=== PATIENT | male | born 1940 | race Caucasian/White ===

== ENCOUNTER 2020-11-17 13:56 | Outpatient (CLI) | payer MEDICARE, BC | END 2020-11-17 13:57 | disposition home or self-care (01) | LOC: CSHCT 13:56 | PROVIDERS: ATTEND Otolaryngology | DX: R13.10 Dysphagia, unspecified (principal); K14.9 Disease of tongue, unspecified; E04.2 Nontoxic multinodular goiter | CPT/HCPCS: 70491; 82565 ==

== ENCOUNTER 2020-12-02 12:49 | Outpatient (CLI) | payer MEDICARE, BC ==
[2020-12-02 14:05] LABS: Hemoglobin 14.7 g/dL (13.5-17.5)
[2020-12-02 15:02] LABS: Anion Gap 15 mmol/L (10-20); BUN (Urea Nitrogen) 24 mg/dL (8.4-25.7); Calc. Creatinine Clearance 0 mL/min (70-130); Calcium 9.9 mg/dL (7.8-10.44); Carbon Dioxide 24 mmol/L (23-31); Chloride 104 mmol/L (98-107); Glucose 141 mg/dL (83-110); Potassium 4.8 mmol/L (3.5-5.1); Sodium 138 mmol/L (136-145)
[2020-12-03 13:56] LABS: SARS-CoV-2 PCR by NAA Not Detected (NotDetected)
== END 2020-12-02 12:50 | disposition home or self-care (01) ==
LOC: CSHLAB 12:49
PROVIDERS: ATTEND Otolaryngology Otolaryngic Allergy
DX: Z01.818 Encounter for other preprocedural examination (principal); Z20.822 Contact with and (suspected) exposure to COVID-19
CPT/HCPCS: 80048; 85014; 85018; 93005; 93010; U0003; U0005

== ENCOUNTER 2020-12-06 08:39 | Day surgery (SDC) | payer MEDICARE, BC ==
[2020-12-05 13:13] VITALS: BMI 28.1
[2020-12-06] MEDS ORDERED: SUGAMMADEX SODIUM 500 MG/5 ML VIAL ONE (08:59)
[2020-12-06] MEDS ORDERED: Lidocaine 1% MPF 2 ML VIAL ONE (09:41)
[2020-12-06] MEDS ORDERED: Fentanyl 100 MCG/2 ML VIAL ONE (10:35)
[2020-12-06] MEDS ORDERED: Midazolam HCl 2 mg/2 ml Vial ONE (10:35)
[2020-12-06] MEDS ORDERED: Rocuronium Bromide 10 MG/ML (10ML VIAL) ONE (10:35)
[2020-12-06] MEDS ORDERED: Ondansetron PF 4 MG/2 ML Vial ONE (10:35)
[2020-12-06] MEDS ORDERED: Dexamethasone 20 MG/5 ML VIAL ONE (10:35)
[2020-12-06] MEDS ORDERED: PROPOFOL 20 ML ONE ×2 (10:35→11:33)
[2020-12-06] MEDS ORDERED: EPINEPHrine 1 MG/ML AMP ONE (10:36)
== END 2020-12-06 13:20 | disposition home or self-care (01) ==
LOC: CSHSDC 08:39
PROVIDERS: ATTEND Otolaryngology Otolaryngic Allergy
PROC: 0CBM8ZX Excision of Pharynx, Via Natural or Artificial Opening Endoscopic, Diagnostic (ICD-10-PCS; principal; 2020-12-06)
DX: C01 Malignant neoplasm of base of tongue (principal); L29.9 Pruritus, unspecified; Z79.82 Long term (current) use of aspirin; Z79.899 Other long term (current) drug therapy; Z79.84 Long term (current) use of oral hypoglycemic drugs; E11.9 Type 2 diabetes mellitus without complications; Z87.891 Personal history of nicotine dependence
CPT/HCPCS: 87624; 88305; 88331; 88342; J0171; J1100; J2250; J2405; J2704; J3010

== ENCOUNTER 2021-10-26 17:12 | Observation (INO) | payer MEDICARE, BC ==
[~2021-10-26 17:12] MED LIST: Iopamidol 300 61% 100 ML VIAL FS ONE
[2021-10-26 19:26] LABS: #Monocytes 0.8 10x3/uL (0.0-1.1); #Neutrophils 12.5 10x3/uL (1.5-8.4); %Basophils 0.2 % (0.0-2.0); %Eosinophils 0.3 % (0.0-6.0); %Lymphocytes 1.7 % (18.0-47.0); %Monocytes 5.8 % (0.0-10.0); %Neutrophils 91.6 % (40.0-75.0); Hemoglobin 12.8 g/dL (13.5-17.5); Mean Corpuscular HGB CONC 34.7 g/dL (32.0-36.0); Mean Corpuscular Hemoglobin 30.4 pg (27.0-33.0); Mean Corpuscular Volume 87.6 fl (81.2-95.1); Mean Platelet Volume 9.5 fl (7.4-10.4); Platelet Count 218 10x3/uL (150-450); RBC Distribution Width 13.3 % (11.5-14.5); Red Blood Cell (RBC) Count 4.21 10x6/uL (4.32-5.72); White Blood Cell (WBC) Count 13.6 10x3/uL (3.5-10.5)
[2021-10-26 19:38] LABS: ALT (SGPT) 14 U/L (8-55); AST (SGOT) 13 U/L (5-34); Albumin 3.8 g/dL (3.4-4.8); Alkaline Phosphatase 77 U/L (40-110); Anion Gap 15 mmol/L (10-20); BUN (Urea Nitrogen) 19 mg/dL (8.4-25.7); Bilirubin, Total 1.8 mg/dL (0.2-1.2); CK (CPK) 21 U/L (30-200); Calc. Creatinine Clearance 0 mL/min (70-130); Calcium 9.1 mg/dL (7.8-10.44); Carbon Dioxide 25 mmol/L (23-31); Chloride 96 mmol/L (98-107); Estimated GFR 106; Globulin 2.3 g/dL (2.4-3.5); Glucose 161 mg/dL (83-110); Lipase 21 U/L (8-78); Potassium 3.9 mmol/L (3.5-5.1); Protein, Total 6.1 g/dL (5.8-8.1); Sodium 132 mmol/L (136-145)
[2021-10-26] MEDS ORDERED: Cefepime 2 GM VIAL ONE (19:45)
[2021-10-26] MEDS ORDERED: Ondansetron PF 4 MG/2 ML Vial ONE (19:45)
[2021-10-26 21:19] LABS: Bilirubin Neg (Negative); Blood, Urine 25 (Negative); Glucose, Urine (Dipstick) Normal (Negative); Ketone, Urine Negative (Negative); Leukocyte 25 (Negative); Nitrite Negative (Negative); Protein, Urine (Dipstick) 30 mg/dl (Neg-Trace)
[2021-10-26 21:41] LABS: Clarity Slightly Cloudy (Clear)
[2021-10-26 21:43] LABS: Bacteria/HPF 3+ HPF (None Seen); RBC/HPF 0-3 HPF (0-3); Squamous Epithelial 0-3 HPF (0-3); Yeast-Budding 1+ HPF (None Seen)
[2021-10-26] MEDS ORDERED: Acetaminophen 500 MG TAB ONE (22:12)
[2021-10-26 23:07] LABS: SARS-CoV-2 NAA Rapid Test Not Detected (NotDetected)
[2021-10-27 00:23] VITALS: BMI 21.9
[2021-10-27] MEDS ORDERED: Acetaminophen 325 MG TAB PO PRN (02:14)
[2021-10-27] MEDS: Sodium Chloride 0.9% 1,000 ML IV SCH ×2 (02:56→17:25)
[2021-10-27] MEDS ORDERED: cefTRIAXone\\ROCEPHIN 1 GM in Sodium Chloride 0.9% 100 ML IVPB SCH (03:00)
[2021-10-27] MEDS ORDERED: Azithromycin 500 MG in Sodium Chloride 0.9% 250 ML 250 ML IVPB SCH (04:00)
[2021-10-27 04:43] LABS: Hemoglobin 11.9 g/dL (13.5-17.5); Mean Corpuscular Hemoglobin 29.7 pg (27.0-33.0); Mean Corpuscular Volume 87.3 fl (81.2-95.1); Mean Platelet Volume 9.7 fl (7.4-10.4); Platelet Count 175 10x3/uL (150-450); RBC Distribution Width 13.6 % (11.5-14.5); Red Blood Cell (RBC) Count 4.01 10x6/uL (4.32-5.72); White Blood Cell (WBC) Count 10.1 10x3/uL (3.5-10.5)
[2021-10-27 04:51] LABS: Anion Gap 13 mmol/L (10-20); BUN (Urea Nitrogen) 16 mg/dL (8.4-25.7); Calc. Creatinine Clearance 63 mL/min (70-130); Calcium 8.7 mg/dL (7.8-10.44); Carbon Dioxide 25 mmol/L (23-31); Chloride 101 mmol/L (98-107); Estimated GFR 88; Glucose 124 mg/dL (83-110); Magnesium 1.8 mg/dL (1.6-2.6); Potassium 3.9 mmol/L (3.5-5.1); Sodium 135 mmol/L (136-145)
[2021-10-27 04:59] LABS: MDiff Complete? YES
[2021-10-27 05:01] LABS: Lymphocytes 2 % (21-51); Monocytes 5 % (0-10); Neutrophil 93 % (42-75)
[2021-10-27 05:02] LABS: Platelet Morphology Comment Appears Adequate; RBC Morphology Normal
[2021-10-27] MEDS ORDERED: Enoxaparin Sodium 40 MG/0.4 ML SYRINGE SC SCH (09:00)
[2021-10-27] MEDS ORDERED: Aspirin 81 mg Enteric Coated Tablet PO SCH (09:00)
[2021-10-27] MEDS ORDERED: Atorvastatin Calcium 10 MG TAB PO SCH (09:00)
[2021-10-27] MEDS ORDERED: PARoxetine 20 MG TAB PO SCH (09:00)
[2021-10-27 17:25] VITALS: BP 116/63; TEMP 97.6
== END 2021-10-27 16:00 | disposition home or self-care (01) ==
LOC: CSHERS 17:12 → INTOOBSV 10-27 00:18 → CSHTELE 10-27 00:18
PROVIDERS: ADMIT Internal Medicine; ATTEND Internal Medicine
DX: J18.9 Pneumonia, unspecified organism (principal); E11.9 Type 2 diabetes mellitus without complications; E78.2 Mixed hyperlipidemia; K57.30 Diverticulosis of large intestine without perforation or abscess without bleeding; Z22.322 Carrier or suspected carrier of Methicillin resistant Staphylococcus aureus; Z85.51 Personal history of malignant neoplasm of bladder; Z85.819 Personal history of malignant neoplasm of unspecified site of lip, oral cavity, and pharynx; Z87.891 Personal history of nicotine dependence; Z79.82 Long term (current) use of aspirin; Z79.84 Long term (current) use of oral hypoglycemic drugs; Z79.899 Other long term (current) drug therapy; Z20.822 Contact with and (suspected) exposure to COVID-19
CPT/HCPCS: 71045; 74177; 80048; 80053; 82550; 82962 ×2; 83605; 83690; 83735; 83880; 84484; 85025; 87040; 93005; 96372; 96375; G0378; U0002; 36415; 36416; 81003; 81015; J0456; J0692; J0696; J1650; J2405; J3370; J3490; J7050; Q9967

== ENCOUNTER 2021-11-12 09:43 | Inpatient (IN) | payer MEDICARE, BC ==
[2021-11-12 10:52] LABS: Hemoglobin 13.1 g/dL (13.5-17.5); Mean Corpuscular HGB CONC 35.1 g/dL (32.0-36.0); Mean Corpuscular Volume 85.6 fl (81.2-95.1); Mean Platelet Volume 9.7 fl (7.4-10.4); Platelet Count 292 10x3/uL (150-450); RBC Distribution Width 14.2 % (11.5-14.5); Red Blood Cell (RBC) Count 4.36 10x6/uL (4.32-5.72); White Blood Cell (WBC) Count 24.3 10x3/uL (3.5-10.5)
[2021-11-12 10:58] LABS: ALT (SGPT) 20 U/L (8-55); AST (SGOT) 9 U/L (5-34); Albumin 3.8 g/dL (3.4-4.8); Alkaline Phosphatase 78 U/L (40-110); Anion Gap 18 mmol/L (10-20); BUN (Urea Nitrogen) 26 mg/dL (8.4-25.7); Bilirubin, Total 1.8 mg/dL (0.2-1.2); Calc. Creatinine Clearance 0 mL/min (70-130); Calcium 9.8 mg/dL (7.8-10.44); Carbon Dioxide 20 mmol/L (23-31); Chloride 96 mmol/L (98-107); Estimated GFR 68; Globulin 3.3 g/dL (2.4-3.5); Glucose 265 mg/dL (83-110); Lipase 16 U/L (8-78); Potassium 4.4 mmol/L (3.5-5.1); Protein, Total 7.1 g/dL (5.8-8.1); Sodium 130 mmol/L (136-145)
[2021-11-12 11:00] LABS: Bilirubin Neg (Negative); Blood, Urine 25 (Negative); Clarity Cloudy (Clear); Glucose, Urine (Dipstick) Normal (Negative); Ketone, Urine Negative (Negative); Leukocyte 100 (Negative); Nitrite Negative (Negative); Protein, Urine (Dipstick) 30 mg/dl (Neg-Trace); Urobilinogen Normal mg/dL (Less than 2)
[2021-11-12 11:11] LABS: Bacteria/HPF 2+ HPF (None Seen); Mucous/LPF 3+ LPF (<2+); RBC/HPF 0-3 HPF (0-3); Squamous Epithelial 0-3 HPF (0-3); WBC/HPF 0-3 HPF (0-3)
[2021-11-12 11:12] LABS: MDiff Complete? YES
[2021-11-12 11:19] LABS: SARS-CoV-2 NAA Rapid Test Not Detected (NotDetected)
[2021-11-12] MEDS ORDERED: cefTRIAXone\\ROCEPHIN 2 GM VIAL ONE (11:30)
[2021-11-12 11:48] LABS: Neutrophil 90 % (42-75)
[2021-11-12 11:49] LABS: Band 1 % (5-11); Lymphocytes 1 % (21-51)
[2021-11-12 11:50] LABS: Monocytes 8 % (0-10); Platelet Morphology Comment Appears Adequate
[2021-11-12] MEDS ORDERED: Ondansetron PF 4 MG/2 ML Vial IVP PRN (14:17)
[2021-11-12] MEDS ORDERED: Ondansetron ODT 4 MG TAB PO PRN (14:17)
[2021-11-12] MEDS ORDERED: Sodium Chloride 0.9% 1,000 ML IV SCH (14:30)
[2021-11-12] MEDS ORDERED: Dextrose 50% Abboject 50 ML SYRINGE SLOW IVP PRN (14:38)
[2021-11-12] MEDS ORDERED: Dextrose 5% in Water 1,000 ML IV PRN (14:38)
[2021-11-12 15:27] VITALS: BMI 21.9
[2021-11-12] MEDS ORDERED: Vancomycin HCl 1 GM in Sodium Chloride 0.9% 250 ML 250 ML IVPB SCH (17:00)
[2021-11-12] MEDS: HumaLOG 300 UNITS/3 ML VIAL SC PRN ×2 (17:57→20:49)
[2021-11-12] MEDS: Acetaminophen 325 MG TAB PO PRN (20:47)
[2021-11-12] MEDS: Cefepime 1 GM in Sodium Chloride 0.9% 100 ML IVPB SCH (20:48)
[2021-11-13 04:44] LABS: #Monocytes 1.7 10x3/uL (0.0-1.1); #Neutrophils 14.2 10x3/uL (1.5-8.4); %Basophils 0.2 % (0.0-2.0); %Eosinophils 0.2 % (0.0-6.0); %Lymphocytes 1.6 % (18.0-47.0); %Monocytes 10.5 % (0.0-10.0); %Neutrophils 86.8 % (40.0-75.0); Hemoglobin 10.6 g/dL (13.5-17.5); Mean Corpuscular Hemoglobin 29.7 pg (27.0-33.0); Mean Corpuscular Volume 87.4 fl (81.2-95.1); Platelet Count 215 10x3/uL (150-450); RBC Distribution Width 14.5 % (11.5-14.5); Red Blood Cell (RBC) Count 3.57 10x6/uL (4.32-5.72); White Blood Cell (WBC) Count 16.3 10x3/uL (3.5-10.5)
[2021-11-13 05:14] LABS: Anion Gap 16 mmol/L (10-20); BUN (Urea Nitrogen) 23 mg/dL (8.4-25.7); Calc. Creatinine Clearance 65 mL/min (70-130); Calcium 8.6 mg/dL (7.8-10.44); Carbon Dioxide 21 mmol/L (23-31); Chloride 99 mmol/L (98-107); Estimated GFR 89; Glucose 215 mg/dL (83-110); Potassium 3.7 mmol/L (3.5-5.1); Sodium 132 mmol/L (136-145)
[2021-11-13] MEDS: Acetaminophen 325 MG TAB PO PRN (05:59)
[2021-11-13] MEDS: HumaLOG 300 UNITS/3 ML VIAL SC PRN ×3 (06:00→21:29)
[2021-11-13] MEDS ORDERED: Electrolyte Replacement Protocol 1 EACH FS PRN (08:00)
[2021-11-13 09:07] LABS: Magnesium 1.9 mg/dL (1.6-2.6); Phosphorus 2.4 mg/dL (2.3-4.7)
[2021-11-13] MEDS: Cefepime 1 GM in Sodium Chloride 0.9% 100 ML IVPB SCH ×2 (09:28→21:27)
[2021-11-13] MEDS: PARoxetine 20 MG TAB PO SCH (09:28)
[2021-11-13] MEDS: Aspirin 81 mg Enteric Coated Tablet PO SCH (09:28)
[2021-11-13] MEDS: Enoxaparin Sodium 40 MG/0.4 ML SYRINGE SC SCH (09:28)
[2021-11-13] MEDS ORDERED: Vancomycin HCl 1 GM in Sodium Chloride 0.9% 250 ML 250 ML IVPB SCH (18:00)
[2021-11-13] MEDS ORDERED: Lantus 1000 UNITS/10 ML VIAL SC SCH (21:00)
[2021-11-13] MEDS: Atorvastatin Calcium 10 MG TAB PO SCH (21:27)
[2021-11-13] MEDS: prednisoLONE 1% Ophth Susp 5 ml Bottle R EYE SCH (21:28)
[2021-11-14] MEDS: Acetaminophen 325 MG TAB PO PRN (02:22)
[2021-11-14 04:24] LABS: Hemoglobin 10.5 g/dL (13.5-17.5); Mean Corpuscular HGB CONC 34.9 g/dL (32.0-36.0); Mean Corpuscular Hemoglobin 29.7 pg (27.0-33.0); Mean Platelet Volume 9.8 fl (7.4-10.4); Platelet Count 217 10x3/uL (150-450); RBC Distribution Width 14.4 % (11.5-14.5); Red Blood Cell (RBC) Count 3.54 10x6/uL (4.32-5.72); White Blood Cell (WBC) Count 8.3 10x3/uL (3.5-10.5)
[2021-11-14 05:04] LABS: Anion Gap 15 mmol/L (10-20); BUN (Urea Nitrogen) 22 mg/dL (8.4-25.7); Calc. Creatinine Clearance 67 mL/min (70-130); Calcium 8.7 mg/dL (7.8-10.44); Carbon Dioxide 20 mmol/L (23-31); Chloride 101 mmol/L (98-107); Estimated GFR 90; Glucose 185 mg/dL (83-110); Potassium 3.4 mmol/L (3.5-5.1); Sodium 133 mmol/L (136-145)
[2021-11-14 05:47] LABS: MDiff Complete? YES
[2021-11-14 05:48] LABS: Platelet Morphology Comment Appears Adequate
[2021-11-14 05:49] LABS: Band 7 % (5-11); Lymphocytes 5 % (21-51); Monocytes 10 % (0-10); Neutrophil 77 % (42-75); Reactive Lymphocytes 1 % (0-10)
[2021-11-14] MEDS ORDERED: Potassium Chloride 20 MEQ TAB PO SCH (06:00)
[2021-11-14] MEDS: PARoxetine 20 MG TAB PO SCH (10:17)
[2021-11-14] MEDS: Cefepime 1 GM in Sodium Chloride 0.9% 100 ML IVPB SCH ×2 (10:17→21:05)
[2021-11-14] MEDS: Enoxaparin Sodium 40 MG/0.4 ML SYRINGE SC SCH (10:17)
[2021-11-14] MEDS: Aspirin 81 mg Enteric Coated Tablet PO SCH (10:17)
[2021-11-14] MEDS ORDERED: NPH, Human Insulin Isophane 300 UNIT/3 ML VIAL SC SCH (11:15)
[2021-11-14 14:08] LABS: Hemoglobin A1c 6.3 % (4.0-6.0)
[2021-11-14 17:42] LABS: Vancomycin, Trough 4.5 ug/mL
[2021-11-14] MEDS: Vancomycin HCl 1 GM in Sodium Chloride 0.9% 250 ML 250 ML IVPB SCH (18:46)
[2021-11-14] MEDS ORDERED: Lantus 1000 UNITS/10 ML VIAL SC SCH ×2 (21:00)
[2021-11-14] MEDS: Atorvastatin Calcium 10 MG TAB PO SCH (21:05)
[2021-11-14] MEDS: prednisoLONE 1% Ophth Susp 5 ml Bottle R EYE SCH (21:06)
[2021-11-15 05:53] LABS: ALT (SGPT) 27 U/L (8-55); AST (SGOT) 22 U/L (5-34); Albumin 3.1 g/dL (3.4-4.8); Alkaline Phosphatase 69 U/L (40-110); Anion Gap 14 mmol/L (10-20); BUN (Urea Nitrogen) 18 mg/dL (8.4-25.7); Bilirubin, Direct 0.3 mg/dL (0.1-0.3); Bilirubin, Total 0.6 mg/dL (0.2-1.2); Calc. Creatinine Clearance 70 mL/min (70-130); Calcium 8.9 mg/dL (7.8-10.44); Carbon Dioxide 21 mmol/L (23-31); Cardiac Risk 3.1 (Less than 4.5); Chloride 102 mmol/L (98-107); Cholesterol 104 mg/dl (< 200 Desired); Estimated GFR 91; Glucose 216 mg/dL (83-110); HDL Cholesterol 34 mg/dL (>60 Neg Risk); LDL Cholesterol, Calculated 52 mg/dL; Magnesium 1.9 mg/dL (1.6-2.6); Potassium 3.3 mmol/L (3.5-5.1); Sodium 134 mmol/L (136-145); Triglycerides 92 mg/dL (Less than 150)
[2021-11-15] MEDS ORDERED: Sodium Chloride 0.9% 250 ML 250 ML ONE (07:50)
[2021-11-15] MEDS: HumaLOG 300 UNITS/3 ML VIAL SC PRN ×3 (07:53→22:01)
[2021-11-15] MEDS: Vancomycin HCl 1 GM in Sodium Chloride 0.9% 250 ML 250 ML IVPB SCH ×2 (07:53→18:30)
[2021-11-15] MEDS ORDERED: Potassium Chloride 20 MEQ TAB PO SCH (08:00)
[2021-11-15 08:03] LABS: #Eosinphils 0.1 10x3/uL (0.0-0.5); #Monocytes 0.6 10x3/uL (0.0-1.1); #Neutrophils 3.5 10x3/uL (1.5-8.4); %Basophils 0.4 % (0.0-2.0); %Eosinophils 1.7 % (0.0-6.0); %Lymphocytes 9.3 % (18.0-47.0); %Monocytes 13.4 % (0.0-10.0); %Neutrophils 74.8 % (40.0-75.0); Mean Corpuscular HGB CONC 34.7 g/dL (32.0-36.0); Mean Corpuscular Hemoglobin 29.5 pg (27.0-33.0); Mean Platelet Volume 9.7 fl (7.4-10.4); Platelet Count 235 10x3/uL (150-450); RBC Distribution Width 14.2 % (11.5-14.5); Red Blood Cell (RBC) Count 3.73 10x6/uL (4.32-5.72); White Blood Cell (WBC) Count 4.6 10x3/uL (3.5-10.5)
[2021-11-15] MEDS: PARoxetine 20 MG TAB PO SCH (09:17)
[2021-11-15] MEDS: Aspirin 81 mg Enteric Coated Tablet PO SCH (09:17)
[2021-11-15] MEDS: Enoxaparin Sodium 40 MG/0.4 ML SYRINGE SC SCH (09:17)
[2021-11-15] MEDS: Cefepime 1 GM in Sodium Chloride 0.9% 100 ML IVPB SCH ×2 (09:17→21:58)
[2021-11-15] MEDS ORDERED: Magnesium 2 GM/50 ML(in water) 2 GM in Premix Bag 1 BAG IVPB SCH ×2 (11:00→13:30)
[2021-11-15] MEDS ORDERED: Lantus 1000 UNITS/10 ML VIAL SC SCH (21:00)
[2021-11-15] MEDS: Atorvastatin Calcium 10 MG TAB PO SCH (21:58)
[2021-11-15] MEDS: prednisoLONE 1% Ophth Susp 5 ml Bottle R EYE SCH (22:00)
[2021-11-16 04:51] LABS: #Eosinphils 0.1 10x3/uL (0.0-0.5); #Monocytes 0.7 10x3/uL (0.0-1.1); #Neutrophils 4.1 10x3/uL (1.5-8.4); %Basophils 0.5 % (0.0-2.0); %Eosinophils 2.5 % (0.0-6.0); %Lymphocytes 11.5 % (18.0-47.0); %Monocytes 11.6 % (0.0-10.0); %Neutrophils 73.5 % (40.0-75.0); Hemoglobin 11.3 g/dL (13.5-17.5); Mean Corpuscular HGB CONC 33.5 g/dL (32.0-36.0); Mean Corpuscular Hemoglobin 29.2 pg (27.0-33.0); Mean Corpuscular Volume 87.1 fl (81.2-95.1); Mean Platelet Volume 9.4 fl (7.4-10.4); Platelet Count 240 10x3/uL (150-450); RBC Distribution Width 14.1 % (11.5-14.5); Red Blood Cell (RBC) Count 3.87 10x6/uL (4.32-5.72); White Blood Cell (WBC) Count 5.6 10x3/uL (3.5-10.5)
[2021-11-16 05:14] LABS: Anion Gap 12 mmol/L (10-20); BUN (Urea Nitrogen) 18 mg/dL (8.4-25.7); Calc. Creatinine Clearance 68 mL/min (70-130); Calcium 8.9 mg/dL (7.8-10.44); Carbon Dioxide 24 mmol/L (23-31); Chloride 104 mmol/L (98-107); Estimated GFR 90; Glucose 131 mg/dL (83-110); Magnesium 2.2 mg/dL (1.6-2.6); Potassium 3.9 mmol/L (3.5-5.1); Sodium 136 mmol/L (136-145)
[2021-11-16 05:46] LABS: Vancomycin, Trough 17.3 ug/mL
[2021-11-16] MEDS: Vancomycin HCl 1 GM in Sodium Chloride 0.9% 250 ML 250 ML IVPB SCH (07:22)
[2021-11-16] MEDS: Cefepime 1 GM in Sodium Chloride 0.9% 100 ML IVPB SCH (08:53)
[2021-11-16] MEDS: Enoxaparin Sodium 40 MG/0.4 ML SYRINGE SC SCH (08:53)
[2021-11-16] MEDS: PARoxetine 20 MG TAB PO SCH (08:53)
[2021-11-16] MEDS: Aspirin 81 mg Enteric Coated Tablet PO SCH (08:53)
[2021-11-16 12:47] VITALS: BP 133/64; TEMP 97.9
== END 2021-11-16 11:40 | disposition home or self-care (01) | DRG 698 ==
LOC: CSHERS 09:43 → CSHTELE 13:20
PROVIDERS: ADMIT Hospitalist; ATTEND Family Medicine
DX: T83.518A Infection and inflammatory reaction due to other urinary catheter, initial encounter (principal); A41.9 Sepsis, unspecified organism; E87.2 Acidosis; E87.1 Hypo-osmolality and hyponatremia; N39.0 Urinary tract infection, site not specified; E11.9 Type 2 diabetes mellitus without complications; E78.5 Hyperlipidemia, unspecified; F32.A Depression, unspecified; E03.9 Hypothyroidism, unspecified; Z96.652 Presence of left artificial knee joint; D64.9 Anemia, unspecified; Z96.1 Presence of intraocular lens; Y84.6 Urinary catheterization as the cause of abnormal reaction of the patient, or of later complication, without mention of misadventure at the time of the procedure; Z20.822 Contact with and (suspected) exposure to COVID-19; Z98.890 Other specified postprocedural states; Z85.51 Personal history of malignant neoplasm of bladder; Z90.6 Acquired absence of other parts of urinary tract; Z93.1 Gastrostomy status; Z85.819 Personal history of malignant neoplasm of unspecified site of lip, oral cavity, and pharynx; Z85.828 Personal history of other malignant neoplasm of skin; Z98.42 Cataract extraction status, left eye; Z98.41 Cataract extraction status, right eye; Z90.89 Acquired absence of other organs; Z87.891 Personal history of nicotine dependence; Z79.82 Long term (current) use of aspirin; Z79.4 Long term (current) use of insulin; Z79.899 Other long term (current) drug therapy; Z82.49 Family history of ischemic heart disease and other diseases of the circulatory system; Z87.440 Personal history of urinary (tract) infections; Z22.322 Carrier or suspected carrier of Methicillin resistant Staphylococcus aureus
CPT/HCPCS: 36415; 36416; 71045; 80048; 80053; 80061; 80076; 80202; 81003; 81015; 83036; 83690; 83735; 84100; 84145; 84439; 84443; 85025; 87040; 87086; 96374; J0692; J0696; J1650; J1815; J2405; J3370; J3475; J3490; J7050

== ENCOUNTER 2021-11-30 12:02 | Outpatient (CLI) | payer MEDICARE, BC | END 2021-11-30 12:03 | disposition home or self-care (01) | LOC: CSHULT 12:02 | PROVIDERS: ATTEND Otolaryngology Otolaryngic Allergy | DX: D37.05 Neoplasm of uncertain behavior of pharynx (principal); E04.2 Nontoxic multinodular goiter | CPT/HCPCS: 76536 ==